=== PATIENT | female | born 1955 | race Caucasian/White ===

== ENCOUNTER 2024-08-19 20:21 | Emergency (ER) | payer MEDICARE ==
[2024-08-19] MEDS: Sodium Chloride 0.9% 10 ML Syringe FLUSH PRN (22:21)
[2024-08-19] MEDS: Sodium Chloride 0.9% 1,000 ML IV ONE (22:21)
[2024-08-19 22:22] LABS: BASOPHILS PERCENT AUTO 0.1 % (0.0-1.0); HEMATOCRIT 26.9 % (37.0-47.0); HEMOGLOBIN 8.9 gm/dl (12.0-16.0); IMMATURE GRAN ABSOLUTE AUTO 0.06 K/mm3 (0.00-0.05); IMMATURE GRAN PERCENT AUTO 0.6 % (0.0-0.4); LYMPHOCYTES ABSOLUTE AUTO 0.8 K/mm3 (1.0-4.8); LYMPHOCYTES PERCENT AUTO 7.8 % (24.0-44.0); MEAN CORPUSCULAR HGB CONC 33.1 g/dl (32.0-36.0); MEAN CORPUSCULAR VOLUME 78.7 fl (83.0-99.0); MEAN PLATELET VOLUME 8.4 fl (9.4-12.3); MONOCYTES ABSOLUTE AUTO 0.4 K/mm3 (0.0-0.8); MONOCYTES PERCENT AUTO 3.9 % (0.0-8.0); NEUTROPHILS ABSOLUTE AUTO 9.3 K/mm3 (1.8-7.7); NEUTROPHILS PERCENT AUTO 87.6 % (41.0-71.0); PLATELET COUNT,PLT 580 K/mm3 (150-400); RED BLOOD CELL COUNT 3.42 M/mm3 (4.10-5.30); WHITE BLOOD CELL COUNT,WBC 10.57 K/mm3 (3.9-11.3)
[2024-08-19 22:44] LABS: A/G RATIO 0.6 (1-2); ALBUMIN 2.6 g/dl (3.4-5.0); ANION GAP 15.8 (5-15); BILIRUBIN TOTAL 0.4 mg/dL (0.2-1.0); BUN/CREATININE RATIO 17.3 (14-18); CREATININE 1.1 mg/dL (0.55-1.02); EST CRCL DRUG DOSING (CG) 26.61 mL/min; POTASSIUM,K 3.8 mEq/L (3.5-5.1); PROTEIN TOTAL,TP 7.1 g/dl (6.4-8.2)
[2024-08-19] MEDS: Ketorolac 15 MG/ML SDV IVPUSH ONE (23:01)
[2024-08-19] MEDS: Ondansetron 4 MG/2 ML SDV IVPUSH ONE (23:01)
[2024-08-19] MEDS: Iopamidol 612 MG/ML 100 ML Bottle IVPUSH ONE (23:42)
[2024-08-20] MEDS ORDERED: droPERidol 5 MG/2 ML SDV IVPUSH ONE (01:40)
[2024-08-20] MEDS: Ketorolac 15 MG/ML SDV ONE (02:00)
[2024-08-20] MEDS: diphenhydrAMINE 50 MG/ML SDV IVPUSH ONE (02:10)
[2024-08-20] MEDS: Haloperidol Lactate 5 MG/ML SDV IVPUSH ONE (02:10)
[2024-08-20 02:23] LABS: C. TRACHOMATIS BY PCR NOT DETECTED; N. GONORRHOEAE BY PCR NOT DETECTED
== END 2024-08-20 04:40 | disposition home or self-care (01) ==
LOC: JD.ED 20:21
DX: N76.0 Acute vaginitis (principal); R33.9 Retention of urine, unspecified; R11.2 Nausea with vomiting, unspecified; R10.31 Right lower quadrant pain; C53.9 Malignant neoplasm of cervix uteri, unspecified; R10.32 Left lower quadrant pain; I10 Essential (primary) hypertension; J44.9 Chronic obstructive pulmonary disease, unspecified; F17.210 Nicotine dependence, cigarettes, uncomplicated; Z79.899 Other long term (current) drug therapy
CPT/HCPCS: 0352U; 36415; 51702; 74177; 80053; 85025; 87491; 87591; 96361; 96374; 96375; 99284; J1200; J1630; J1885; J2405; J3490; J7030; Q9967